=== PATIENT | female | born 1950 | race Caucasian/White ===

== ENCOUNTER → 2023-08-16 11:11 | Outpatient (REF) | payer OTHER, SELFPAY | LOC: WDC 11:11 | PROVIDERS: ATTENDING PHYSICIAN Family Medicine | DX: Z12.31 Encounter for screening mammogram for malignant neoplasm of breast (principal); M81.0 Age-related osteoporosis without current pathological fracture | CPT/HCPCS: 77063; 77067; 77080 ==

== ENCOUNTER → 2023-08-29 14:51 | Outpatient (REF) | payer OTHER, SELFPAY | LOC: RAD 14:51 | PROVIDERS: ATTENDING PHYSICIAN Emergency Medicine; FAMILY PHYSICIAN Family Medicine | DX: S29.9XXA Unspecified injury of thorax, initial encounter (principal) | CPT/HCPCS: 71101 ==

== ENCOUNTER → 2023-11-12 06:46 | Outpatient (REF) | payer OTHER, SELFPAY ==
[2023-11-12 07:55] LABS: % Basophils 0.9 % (0-2); % Eosinophils 3.3 % (0-6); % Neutrophils 59.8 % (42.2-75.2); Absolute Eosinophils 0.1 10^3/uL (0-0.7); Absolute Lymphocytes 1.1 10^3/uL (1.2-3.4); Absolute Monocytes 0.4 10^3/uL (0.1-0.6); Absolute Neutrophils 2.5 10^3/uL (1.4-6.5); Hematocrit 42.3 % (37.0-47.0); Hemoglobin 14.1 g/dL (12.0-16.0); Mean Corp Hgb Conc. 33.3 g/dL (33.0-37.0); Mean Platelet Volume 9.4 fL (7.4-10.4); Nucleated Red Blood Cells % 0 %; Platelet Count 221 10^3/uL (130-400); Red Blood Cell Count 4.55 10^6/uL (4.20-5.40); Red Cell Dist. Width 12.8 % (11.5-14.5); White Blood Cell Count 4.2 10^3/uL (4.8-10.8)
[2023-11-12 08:15] LABS: ALT (SGPT) 19 U/L (0-35); AST (SGOT) 32 U/L (14-36); Albumin 4.5 g/dl (3.5-5.0); Alkaline Phosphatase 81 U/L (38-126); Blood Urea Nitrogen 12 mg/dl (7-17); Calcium 9.7 mg/dl (8.4-10.2); Carbon Dioxide 27 mmol/L (22-30); Chloride 104 mmol/L (98-107); Glucose 93 mg/dl (70-99); Sodium 141 mmol/L (135-145); Total Bilirubin 0.9 mg/dl (0.2-1.3); Total Protein 6.9 g/dl (6.3-8.2); eGFR > 60.00
[2023-11-12 08:17] LABS: C-Reactive Protein < 5.00 mg/L (0.0-10.00)
[2023-11-12 08:46] LABS: Cortisol, Random 12.8 ug/dl; TSH 1.59 uIU/ml (0.47-4.68)
[2023-11-12 09:56] LABS: Vitamin D, 25-OH*** 43.9 ng/mL (30-80)
[2023-11-12 10:42] LABS: IgA 260 mg/dl (70-400)
[2023-11-13 12:22] LABS: Intact PTH 98.4 pg/ml (13.6-85.8)
[2023-11-13 18:26] LABS: Endomysial IgA Antibody Titer <1:10 (<1:10)
[2023-11-14 15:26] LABS: tTG IgA Antibody 6.7 EU/ml (0-19); tTG IgG Antibody 8.4 EU/ml (0-19)
[2023-11-14 20:09] LABS: Albumin 4.35 g/dL (3.75-5.01); Alpha 1 Globulin 0.22 g/dL (0.19-0.46); Alpha 2 Globulin 0.61 g/dL (0.48-1.05); Free Kappa Light Chains,Quant 15.36 mg/L (3.30-19.40); Free Lambda Light Chains,Quant 14.41 mg/L (5.71-26.30); IgA 267 mg/dL (68-408); IgG 662 mg/dL (768-1632); IgM 62 mg/dL (35-263); Immunofixation Electrophoresis IFE Done; Kappa/Lambda Fr Light Ratio 1.07 (0.26-1.65); Total Protein-Electrophoresis 6.6 g/dL (6.3-8.2)
== END ==
LOC: REG 06:46
PROVIDERS: ATTENDING PHYSICIAN Physician Assistant; FAMILY PHYSICIAN Family Medicine
DX: D80.1 Nonfamilial hypogammaglobulinemia (principal); E07.9 Disorder of thyroid, unspecified; E21.5 Disorder of parathyroid gland, unspecified; E27.8 Other specified disorders of adrenal gland; E55.9 Vitamin D deficiency, unspecified; K90.0 Celiac disease; M81.0 Age-related osteoporosis without current pathological fracture
CPT/HCPCS: 36415; 80053; 82306; 82533; 82784; 83516; 83521; 83970; 84155; 84165; 84443; 85025; 86140; 86231; 86334

== ENCOUNTER → 2023-11-15 06:39 | Outpatient (REF) | payer OTHER, SELFPAY ==
[2023-11-15 08:15] LABS: 24 Hour Urine Total Volume 2600 ml
== END ==
LOC: REG 06:39
PROVIDERS: ATTENDING PHYSICIAN Physician Assistant; FAMILY PHYSICIAN Family Medicine
DX: D80.1 Nonfamilial hypogammaglobulinemia (principal); E07.9 Disorder of thyroid, unspecified; E21.5 Disorder of parathyroid gland, unspecified; E27.8 Other specified disorders of adrenal gland; E55.9 Vitamin D deficiency, unspecified; M81.0 Age-related osteoporosis without current pathological fracture; R82.994 Hypercalciuria; K90.0 Celiac disease
CPT/HCPCS: 81050; 82340

== ENCOUNTER → 2024-05-22 07:12 | Outpatient (REF) | payer OTHER, SELFPAY ==
[2024-05-22 07:35] LABS: Ionized Calcium 1.15 mMOL/L (1.15-1.33)
[2024-05-22 08:00] LABS: ALT (SGPT) 28 U/L (0-35); AST (SGOT) 39 U/L (14-36); Albumin 4.9 g/dl (3.5-5.0); Alkaline Phosphatase 51 U/L (38-126); Blood Urea Nitrogen 16 mg/dl (7-17); Calcium 9.3 mg/dl (8.4-10.2); Carbon Dioxide 27 mmol/L (22-30); Chloride 105 mmol/L (98-107); Glucose 90 mg/dl (70-99); Potassium 4.1 mmol/L (3.5-5.1); Sodium 144 mmol/L (135-145); Total Bilirubin 0.8 mg/dl (0.2-1.3); Total Protein 7.3 g/dl (6.3-8.2); eGFR > 60.00
[2024-05-24 08:48] LABS: Intact PTH 111.4 pg/ml (13.6-85.8)
== END ==
LOC: REG 07:12
PROVIDERS: ATTENDING PHYSICIAN Internal Medicine Rheumatology; FAMILY PHYSICIAN Family Medicine
DX: M81.0 Age-related osteoporosis without current pathological fracture (principal)
CPT/HCPCS: 36415; 80053; 82330; 83970

== ENCOUNTER → 2024-08-26 11:24 | Outpatient (REF) | payer OTHER, SELFPAY | LOC: WDC 11:24 | PROVIDERS: ATTENDING PHYSICIAN Family Medicine | DX: Z12.31 Encounter for screening mammogram for malignant neoplasm of breast (principal) | CPT/HCPCS: 77063; 77067 ==

== ENCOUNTER → 2024-11-25 06:42 | Outpatient (REF) | payer OTHER, SELFPAY ==
[2024-11-25 07:52] LABS: AST (SGOT) 32 U/L (14-36); Albumin 4.8 g/dl (3.5-5.0); Alkaline Phosphatase 71 U/L (38-126); Blood Urea Nitrogen 12 mg/dl (7-17); Carbon Dioxide 27 mmol/L (22-30); Chloride 106 mmol/L (98-107); Glucose 109 mg/dl (70-99); Sodium 142 mmol/L (135-145); Total Bilirubin 0.7 mg/dl (0.2-1.3); Total Protein 7.6 g/dl (6.3-8.2); eGFR > 60.00
[2024-11-25 08:11] LABS: ALT (SGPT) 21 U/L (0-35); Potassium 3.8 mmol/L (3.5-5.1)
[2024-11-25 09:33] LABS: Vitamin D, 25-OH*** 61.4 ng/mL (30-80)
[2024-11-26 19:09] LABS: Intact PTH 89.3 pg/ml (13.6-85.8)
== END ==
LOC: REG 06:42
PROVIDERS: ATTENDING PHYSICIAN Internal Medicine Rheumatology; FAMILY PHYSICIAN Family Medicine
DX: E21.3 Hyperparathyroidism, unspecified (principal); E55.9 Vitamin D deficiency, unspecified; M81.0 Age-related osteoporosis without current pathological fracture
CPT/HCPCS: 36415; 80053; 82306; 82330; 83970

== ENCOUNTER → 2025-06-09 07:15 | Outpatient (REF) | payer OTHER, SELFPAY ==
[2025-06-09 08:17] LABS: ALT (SGPT) 24 U/L (0-35); AST (SGOT) 34 U/L (14-36); Albumin 5.0 g/dl (3.5-5.0); Alkaline Phosphatase 68 U/L (38-126); Blood Urea Nitrogen 14 mg/dl (7-17); Calcium 9.3 mg/dl (8.4-10.2); Carbon Dioxide 29 mmol/L (22-30); Chloride 104 mmol/L (98-107); Glucose 86 mg/dl (70-99); Potassium 3.9 mmol/L (3.5-5.1); Sodium 139 mmol/L (135-145); Total Protein 7.9 g/dl (6.3-8.2); eGFR > 60.00
[2025-06-09 08:29] LABS: Vitamin D, 25-OH*** 57.4 ng/mL (30-80)
== END ==
LOC: REG 07:15
PROVIDERS: ATTENDING PHYSICIAN Physician Assistant; FAMILY PHYSICIAN Family Medicine
DX: E21.3 Hyperparathyroidism, unspecified (principal); E55.9 Vitamin D deficiency, unspecified; M81.0 Age-related osteoporosis without current pathological fracture
CPT/HCPCS: 36415; 80053; 82306; 82330; 83970